=== PATIENT | female | born 1995 | race American Indian/Alaskan Native ===

== ENCOUNTER 2021-04-13 17:02 | Outpatient (CLI) | payer OTHER, MEDICAID ==
[2021-04-13] MEDS ORDERED: LACTATED RINGERS 1,000 ML IV ONE (17:40)
[2021-04-13 17:56] LABS: Bacteria,Urine 1+ /HPF (Negative); Bilirubin,Urine NEG (Negative); Blood,Urine NEG (Negative); Color,Urine Yellow (Yellow); Mucus,Urine 3+ /HPF; Urobilinogen,Urine < 2.0 mg/dL (<2.0)
[2021-04-13] MEDS ORDERED: ACETAMINOPHEN 500 MG TAB PO ONE (18:31)
[2021-04-13] MEDS: TERBUTALINE 1 MG/1 ML INJ SUB-Q PRN ×2 (19:21→19:52)
[2021-04-13 20:26] VITALS: BP 120/59
== END 2021-04-13 20:45 | disposition home or self-care (01) ==
LOC: TRG 17:02 → APU 17:09 → TRG 20:45
PROVIDERS: ATTEND Obstetrics & Gynecology
DX: O47.03 False labor before 37 completed weeks of gestation, third trimester (principal); R52 Pain, unspecified; Z3A.33 33 weeks gestation of pregnancy
CPT/HCPCS: 59025; 81001; 96360; 96372; J3105; J7120

== ENCOUNTER 2021-05-29 08:53 | Inpatient (IN) | payer OTHER, MEDICAID ==
[2021-05-29] MEDS: LACTATED RINGERS 1,000 ML IV SCH ×2 (11:00→15:22)
[2021-05-29] MEDS ORDERED: LACTATED RINGERS 1,000 ML IV ONE (11:12)
[2021-05-29] MEDS ORDERED: CARBOPROST TROMETHAMINE 250 MCG/1 ML INJ IM PRN (13:29)
[2021-05-29] MEDS ORDERED: ONDANSETRON 4 MG/2 ML INJ IV PRN ×2 (13:29→20:02)
[2021-05-29] MEDS ORDERED: LOPERAMIDE 2 MG CAP PO PRN (13:29)
[2021-05-29] MEDS ORDERED: METHYLERGONOVINE MALEATE 0.2 MG/ML VIAL IM PRN (13:29)
[2021-05-29] MEDS ORDERED: TERBUTALINE 1 MG/1 ML INJ SUB-Q PRN (13:29)
[2021-05-29] MEDS ORDERED: NALOXONE 0.4 MG/1 ML INJ IV PRN (13:29)
[2021-05-29] MEDS ORDERED: fentaNYL 100 MCG/2 ML INJ IV PRN (13:29)
[2021-05-29] MEDS ORDERED: ePHEDrine SULFATE 50 MG/1 ML INJ IV PRN ×2 (13:29→15:30)
[2021-05-29] MEDS ORDERED: ACETAMINOPHEN 325 MG TAB PO PRN ×2 (13:29→20:02)
[2021-05-29] MEDS ORDERED: OXYTOCIN 10 UNIT/1 ML INJ IM PRN (13:29)
[2021-05-29] MEDS ORDERED: BUTORPHANOL 2 MG/1 ML INJ IV PRN ×2 (13:29)
[2021-05-29] MEDS ORDERED: MINERAL OIL 30 ML ORAL LIQD PO PRN (13:29)
[2021-05-29] MEDS ORDERED: OXYTOCIN DRIP 30 UNITS/500 ML BAG IV SCH ×2 (14:00)
[2021-05-29] MEDS ORDERED: miSOPROStol 200 MCG TAB PR PRN (14:00)
[2021-05-29] MEDS ORDERED: LIDOCAINE (2%) 20 MG/1 ML VIAL 20 ML MDV INFILTRATI ONE (14:00)
[2021-05-29 15:16] LABS: Hematocrit 33.4 % (30.3-42.9); Hemoglobin 10.8 gm/dl (10.1-14.3); Mean Corpuscular HGB Conc 32 % (30-34); Mean Corpuscular Volume 80 fl (79-97); Platelet Count 190 K/mm3 (140-440); Red Blood Count 4.19 M/mm3 (3.65-5.03); Red Cell Distribution Width 16.9 % (13.2-15.2)
[2021-05-29] MEDS ORDERED: NALOXONE 2 MG/2 ML INJ IV PRN (15:30)
--- NOTE | 2021-05-29 15:52 | Anesthesia Consultation ---
Anesthesia Consult and Med Hx Date of service: 05/29/21 - Airway Anesthetic Teeth Evaluation: Good, Poor ROM Head & Neck: Adequate Mental/Hyoid Distance: Adequate Mallampati Class: Class II Intubation Access Assessment: Probably Good - Pulmonary Exam CTA: Yes - Cardiac Exam Cardiac Exam: RRR - Pre-Operative Health Status ASA Pre-Surgery Classification: ASA2 Proposed Anesthetic Plan: Epidural - Pulmonary Hx Smoking: No Hx Asthma: No Hx Respiratory Symptoms: No SOB: No COPD: No Home Oxygen Therapy: No Hx Pneumonia: No Hx Sleep Apnea: No - Cardiovascular System Hx Hypertension: No Hx Coronary Artery Disease: No Hx Heart Attack/AMI: No Hx Angina: No Hx Percutaneous Transluminal Coronary Angioplasty (PTCA): No Hx Cardia Arrhythmia: No Hx Pacemaker: No Hx Internal Defibrillator: No Hx Valvular Heart Disease: No Hx Heart Murmur: No Hx Peripheral Vascular Disease: No - Central Nervous System Hx Neuromuscular Disorder: No Hx Seizures: No CVA: No Hx Back Pain: Yes Hx Psychiatric Problems: No - Gastrointestinal Hx Ulcer: No Hx Gastroesophageal Reflux Disease: No - Endocrine Hx Renal Disease: No Hx End Stage Renal Disease: No Hx Cirrhosis: No Hx Liver Disease: No Hx Insulin Dependent Diabetes: No Hx Non-Insulin Dependent Diabetes: No Hx Thyroid Disease: No Hx Hypothyroidism: No Hx Hyperthyroidism: No - Hematic Hx Anemia: No Hx Sickle Cell Disease: No - Other Systems Hx Alcohol Use: Yes (SOCIALLY) Hx Substance Use: No Hx Cancer: No Hx Obesity: No
[2021-05-29] MEDS ORDERED: fentaNYL-BUPIV 2 MCG/ML-0.125% 200 MCG/100 ML BAG EPIDURAL SCH (16:00)
--- NOTE | 2021-05-29 16:30 | Progress Note ---
Labor Epidural - Labor Epidural Start Time: 16:00 Stop Time: 16:14 Performed by:: CAN RIDLEY Procedure: Patient is requesting a laboring epidural for laboring pain. Patient IDed, H&P reviewed, all questions and concerns were answered, and consent was signed. Timeout was performed at bedside. Patient in sitting position. Sterile prep and drape was performed. [3] ml of 1% lidocaine skin wheal at L[3]- L [4]. 18- gauge [employer] epidural needle was advanced to loss of resistance with saline technique 4cm. Negative CSF negative blood. Epidural catheter advanced to [10] centimeters. [NEGATIVE] Aspiration [NEGATIVE] test dose. Sterile dressing applied. Patient tolerated procedure.
--- NOTE | 2021-05-29 16:50 | History and Physical Report ---
History of Present Illness Date of examination: 05/29/21 Date of admission: 05/29/21 14:35 Chief complaint: Uterine contractions History of present illness: 25-year-old G1, P0 at 39 and 5 weeks who presents to labor and delivery with a chief complaint of regular uterine contractions. The patient had evidence of cervical dilatation during observation from 3 to 5 cm. Her course was initiated in the first trimester at [facility]. Her course has been complicated by episodes of vertigo, vasovagal symptoms, and STD exposure for which the patient tested negative at her test of cure. She is GBS negative. She is a silent carrier for alpha thalassemia. Past History Past Medical History: other (Alpha thalassemia carrier) Past Surgical History: no surgical history [employer] LO[employer]ER History: chlamydia Social history: single - Obstetrical History Expected Date of Delivery: 05/31/21 Actual Gestation: 39 Week(s) 5 Day(s) : 1 Para: 0 Hx # Term Pregnancies: 0 Number of Pregnancies: 0 Spontaneous Abortions: 0 Induced : 0 Number of Living Children: 0 Medications and Allergies Allergies Allergy/AdvReac Type Severity Reaction Status Date / Time No Known Allergies Allergy Verified 04/13/21 17:40 Home Medications Medication Instructions Recorded Confirmed Last Taken Type No Known Home Medications [No 05/29/21 05/29/21 Unknown History Reported Home Medications] Active Meds: Active Medications Acetaminophen (Acetaminophen 325 Mg Tab) 650 mg PO Q4H PRN PRN Reason: Pain, Mild (1-3) Butorphanol Tartrate (Butorphanol 2 Mg/1 Ml Inj) 1 mg IV Q2H PRN PRN Reason: Pain, Moderate(4-6) LABOR PAIN Butorphanol Tartrate (Butorphanol 2 Mg/1 Ml Inj) 2 mg IV Q2H PRN PRN Reason: Pain , Severe (7-10) Carboprost Tromethamine (Carboprost Tromethamine 250 Mcg/1 Ml Inj) 250 mcg IM ONCE PRN PRN Reason: Uterine Bleeding Ephedrine Sulfate (Ephedrine Sulfate 50 Mg/1 Ml Inj) 10 mg IV Q2M PRN PRN Reason: Hypotension Ephedrine Sulfate (Ephedrine Sulfate 50 Mg/1 Ml Inj) 10 mg IV Q2M PRN PRN Reason: Hypotension Fentanyl (Fentanyl 100 Mcg/2 Ml Inj) 100 mcg IV Q2H PRN PRN Reason: Pain,Severe (7-10) LABOR PAIN Oxytocin/Sodium Chloride (Pitocin/Ns 30 Unit/500ml) 30 units in 500 mls @ 2 mls/hr IV TITR CHRISTEN; Protocol Lactated Ringer's (Lactated Ringers) 1,000 mls @ 125 mls/hr IV DIRECT CHRISTEN Last Admin: 05/29/21 15:22 Dose: 125 mls/hr Documented by: Oxytocin/Sodium Chloride (Pitocin/Ns 30 Unit/500ml) 30 units in 500 mls @ 40 mls/hr IV TITR CHRISTEN; Protocol Fentanyl/Bupivacaine/Sodium Chlor (Fentanyl-Bupiv 2 Mcg/Ml-0.125%) 200 mcg in 100 mls @ 12 mls/hr EPIDURAL TITR CHRISTEN; Protocol Last Admin: 05/29/21 16:37 Dose: 12 mls/hr Documented by: Loperamide HCl (Loperamide 2 Mg Cap) 2 mg PO ONCE PRN PRN Reason: give with Hemabate Methylergonovine Maleate (Methylergonovine Maleate 0.2 Mg/Ml Vial) 0.2 mg IM ONCE PRN PRN Reason: Uterine Bleeding Mineral Oil (Mineral Oil 30 Ml Oral Liqd) 30 ml PO QHS PRN PRN Reason: Constipation Misoprostol (Misoprostol 200 Mcg Tab) 800 mcg CO ONCE PRN PRN Reason: Uterine Bleeding Naloxone HCl (Naloxone 0.4 Mg/1 Ml Inj) 0.1 mg IV Q2MIN PRN PRN Reason: Res Rate </= 8 or 02 SAT < 92% Naloxone HCl (Naloxone 2 Mg/2 Ml Inj) 0.2 mg IV Q5M PRN PRN Reason: Respiratory sedation Ondansetron HCl (Ondansetron 4 Mg/2 Ml Inj) 4 mg IV Q8H PRN PRN Reason: Nausea And Vomiting Last Admin: 05/29/21 15:21 Dose: 4 mg Documented by: Oxytocin (Oxytocin 10 Unit/1 Ml Inj) 10 unit IM ONCE PRN PRN Reason: Uterine Bleeding Terbutaline Sulfate (Terbutaline 1 Mg/1 Ml Inj) 0.25 mg SUB-Q ONCE PRN PRN Reason: Hyperstimulation/Hypertonicity Review of Systems All systems: negative Genitourinary: contractions, no leakage of fluid - Vital Signs Vital signs: Vital Signs Pulse Pulse Ox 54 L 78 L 05/29/21 09:57 05/29/21 09:57 Temp Pulse Resp BP Pulse Ox 98.1 F 65 16 111/62 100 05/29/21 10:05 05/29/21 16:46 05/29/21 10:05 05/29/21 16:45 05/29/21 16:46 - Physical Exam Breasts: Positive: deferred Cardiovascular: Regular rate Lungs: Positive: Clear to auscultation Abdomen: Positive: normal appearance Results Result Diagrams: 05/29/21 14:30 Abnormal lab results 05/29/21 Range/Units 14:30 MCH 26 L (28-32) pg RDW 16.9 H (13.2-15.2) % All other labs normal. Assessment and Plan - Patient Problems (1) Active labor at term Current Visit: Yes Status: Acute Plan to address problem: Admit to labor and delivery
--- NOTE | 2021-05-29 17:20 | Procedure Note ---
OB Delivery Note - Delivery Date of Delivery: 05/29/21 Surgeon: MONTANA ROUSE Estimated blood loss: 100cc - Vaginal Delivery presentation: vertex Delivery position: OA Delivery monitor: external FHT, external uterine Route of delivery: Delivery placenta: spontaneous Delivery cord: 3 umbilical vessels Episiotomy: none Delivery laceration: 1st degree - Infant A at 1 minute: 8 at 5 minutes: 9 Infant Gender: Female (weight 6lbs 11oz)
[2021-05-29] MEDS ORDERED: LANOLIN/ZINC/DIMETHICONE (LANSINOH) 7 GM TP PRN (20:02)
[2021-05-29] MEDS ORDERED: diphenhydrAMINE 25 MG CAP PO PRN (20:02)
[2021-05-29] MEDS ORDERED: PROMETHAZINE 25 MG RECT SUPP PR PRN (20:02)
[2021-05-29] MEDS ORDERED: HYDROcodone/ACETAMINOPHEN 5-325 MG TAB PO PRN (20:02)
[2021-05-29] MEDS ORDERED: WITCH HAZEL/ GLYCERIN PAD TP PRN (20:02)
[2021-05-29] MEDS ORDERED: PROMETHAZINE 25 MG TAB PO PRN (20:02)
[2021-05-29] MEDS ORDERED: MAGNESIUM HYDROXIDE (MOM) ORAL LIQD UDC PO PRN (20:02)
[2021-05-29] MEDS: IBUPROFEN 600 MG TAB PO SCH (22:45)
[2021-05-30 06:35] LABS: Hematocrit 29.5 % (30.3-42.9); Hemoglobin 9.6 gm/dl (10.1-14.3)
[2021-05-30] MEDS: IBUPROFEN 600 MG TAB PO SCH ×3 (08:30→23:47)
--- NOTE | 2021-05-30 11:34 | Progress Note ---
Assessment and Plan - Patient Problems (1) Active labor at term Current Visit: Yes Status: Acute Plan to address problem: Patient doing well Discharge home Subjective - Subjective Date of service: 05/30/21 Interval history: Patient having some minor cramping with breast-feeding. Her pain is otherwise well controlled. She is tolerating regular diet. Patient reports: appetite normal, voiding normally, pain well controlled : doing well Objective - Vital Signs Latest vital signs: Vital Signs Temp Pulse Resp BP BP Pulse Ox Pulse Ox 05/30/21 08:11 97.8 F 85 18 109/69 99 05/30/21 08:09 100 05/30/21 04:44 98.4 F 80 20 99/52 97 05/30/21 00:45 98.0 F 78 18 97/59 100 05/29/21 22:45 20 05/29/21 20:00 97.8 F 56 L 20 110/65 97 97 05/29/21 19:41 65 100 05/29/21 19:40 66 88 05/29/21 19:37 64 98/68 05/29/21 19:36 60 100 05/29/21 19:35 56 L 103/55 05/29/21 19:33 56 L 105/59 05/29/21 19:31 58 L 104/59 100 05/29/21 19:29 57 L 103/59 05/29/21 19:27 55 L 101/59 05/29/21 19:26 58 L 100 05/29/21 19:25 55 L 103/59 05/29/21 19:23 54 L 106/56 05/29/21 19:21 54 L 109/58 100 05/29/21 19:19 61 104/55 05/29/21 19:17 54 L 101/59 05/29/21 19:16 57 L 89 05/29/21 19:15 55 L 100/56 66 L 05/29/21 19:13 71 108/58 05/29/21 19:11 65 107/65 100 05/29/21 19:09 52 L 107/68 05/29/21 19:08 61 12 100 05/29/21 19:07 48 L 109/70 05/29/21 19:06 51 L 99 05/29/21 19:05 46 L 110/72 05/29/21 19:03 51 L 105/65 05/29/21 19:01 52 L 105/66 99 05/29/21 18:59 49 L 108/67 05/29/21 18:57 49 L 107/67 05/29/21 18:56 47 L 100 05/29/21 18:55 48 L 107/66 05/29/21 18:53 48 L 105/66 05/29/21 18:52 58 L 92 05/29/21 18:51 52 L 106/59 99 05/29/21 18:50 54 L 113/59 05/29/21 18:47 52 L 102/61 05/29/21 18:46 57 L 105/60 91 05/29/21 18:43 47 L 109/60 05/29/21 18:41 49 L 108/68 100 05/29/21 18:39 49 L 104/67 05/29/21 18:37 60 101/65 05/29/21 18:36 54 L 91 05/29/21 18:35 59 L 106/72 05/29/21 18:33 48 L 103/64 05/29/21 18:32 51 L 102/66 05/29/21 18:31 55 L 99 05/29/21 18:29 51 L 97/56 05/29/21 18:27 48 L 102/60 05/29/21 18:26 55 L 93 05/29/21 18:25 52 L 101/55 05/29/21 18:23 51 L 103/61 05/29/21 18:22 50 L 104/57 05/29/21 18:21 50 L 99 05/29/21 18:19 54 L 105/55 05/29/21 18:17 54 L 102/53 05/29/21 18:16 60 90/42 99 05/29/21 18:13 179 H 118/71 05/29/21 18:11 184 H 132/79 98 05/29/21 18:09 179 H 122/73 05/29/21 18:06 69 99 05/29/21 18:03 53 L 97/55 05/29/21 18:01 66 96/51 98 05/29/21 17:59 68 98/58 05/29/21 17:57 66 104/59 05/29/21 17:56 71 99 05/29/21 17:55 62 109/55 05/29/21 17:53 75 103/58 05/29/21 17:51 74 111/55 100 05/29/21 17:50 77 109/54 05/29/21 17:46 81 99 05/29/21 17:41 74 99 05/29/21 17:36 84 99 05/29/21 17:35 77 117/56 05/29/21 17:33 66 97/64 94 05/29/21 17:31 66 103/59 99 05/29/21 17:29 73 106/55 05/29/21 17:27 76 104/55 05/29/21 17:26 79 99 05/29/21 17:25 75 104/55 05/29/21 17:23 76 98/53 05/29/21 17:21 90 99/54 100 05/29/21 17:19 87 122/58 05/29/21 17:18 84 124/56 05/29/21 17:16 85 100 05/29/21 17:15 74 114/60 05/29/21 17:13 67 114/60 05/29/21 17:11 79 117/57 91 05/29/21 17:09 81 123/59 05/29/21 17:08 82 126/57 05/29/21 17:06 89 100 05/29/21 17:05 79 118/56 05/29/21 17:03 69 114/57 05/29/21 17:01 61 116/58 100 05/29/21 16:59 74 110/59 05/29/21 16:57 60 114/61 05/29/21 16:56 65 100 05/29/21 16:55 71 114/59 05/29/21 16:53 69 108/58 05/29/21 16:51 64 111/62 100 05/29/21 16:49 77 103/59 05/29/21 16:47 61 108/59 05/29/21 16:46 65 100 05/29/21 16:45 62 111/62 05/29/21 16:43 60 114/66 05/29/21 16:41 73 114/70 100 05/29/21 16:39 66 113/63 05/29/21 16:37 73 106/58 05/29/21 16:36 77 100 05/29/21 16:35 68 115/65 05/29/21 16:33 71 109/63 05/29/21 16:31 80 111/65 100 05/29/21 16:29 75 112/66 05/29/21 16:27 76 115/69 05/29/21 16:26 67 100 05/29/21 16:25 77 118/65 05/29/21 16:23 62 113/64 05/29/21 16:21 66 116/66 100 05/29/21 16:18 86 112/66 05/29/21 16:17 60 106/61 90 05/29/21 16:16 72 99 05/29/21 16:15 78 104/59 05/29/21 16:13 80 105/58 05/29/21 16:11 68 107/61 100 05/29/21 16:09 72 103/59 05/29/21 16:07 76 100/55 05/29/21 16:06 77 98 05/29/21 16:05 85 105/52 05/29/21 16:02 80 86 05/29/21 16:01 85 100 05/29/21 15:56 78 99 05/29/21 15:51 81 100 05/29/21 15:46 82 100 05/29/21 15:43 97 H 62 L 05/29/21 15:41 82 100 05/29/21 15:40 83 107/55 05/29/21 15:37 81 94 05/29/21 15:36 78 100 05/29/21 15:31 82 86 05/29/21 15:26 86 100 05/29/21 15:21 81 100 05/29/21 15:16 88 100 05/29/21 15:11 78 100 05/29/21 15:06 86 100 05/29/21 15:01 86 71 L 05/29/21 14:59 91 H 81 L 05/29/21 14:55 115 H 100 05/29/21 14:50 83 100 05/29/21 14:45 77 100 05/29/21 14:41 68 119/64 05/29/21 14:40 68 100 05/29/21 14:35 85 100 05/29/21 14:30 82 100 05/29/21 14:25 28 L 82 L 05/29/21 14:16 65 100 05/29/21 14:11 74 100 05/29/21 14:06 79 100 05/29/21 14:04 68 125/58 05/29/21 14:01 72 100 05/29/21 13:56 71 96 05/29/21 13:51 77 100 05/29/21 13:46 72 100 05/29/21 13:41 85 100 05/29/21 13:36 79 100 05/29/21 13:34 81 93/55 05/29/21 13:31 72 100 05/29/21 13:26 72 100 05/29/21 13:23 70 109/60 05/29/21 13:21 74 100 05/29/21 13:19 72 94 05/29/21 13:16 67 100 05/29/21 13:11 79 100 05/29/21 12:59 72 100 05/29/21 12:53 72 100 05/29/21 12:48 74 100 05/29/21 12:43 65 100 05/29/21 12:38 66 100 05/29/21 12:33 67 100 05/29/21 12:28 69 100 05/29/21 12:23 68 100 05/29/21 12:18 70 100 05/29/21 12:13 77 100 05/29/21 12:08 82 100 05/29/21 12:04 71 102/71 05/29/21 12:03 70 100 05/29/21 11:58 71 100 05/29/21 11:53 63 100 05/29/21 11:48 64 100 05/29/21 11:43 67 100 05/29/21 11:38 64 100 05/29/21 11:34 72 99/62 Intake and Output 05/29/21 05/30/21 05/30/21 22:59 06:59 14:59 Intake Total 545.833 Output Total 600 Balance -54.167 Intake: IV 545.833 Lactated Ringers 1,000 ml 545.833 @ 125 mls/hr IV DIRECT CHRISTEN Rx#:[id number] Output: Urine 600 Void 600 Other: Total, Output Amount 600 # Voids Void 1 Estimated Blood Loss 50 - Labs Labs: Abnormal lab results 07/31/21 08/01/21 Range/Units 14:30 06:15 Hgb 9.6 L (10.1-14.3) gm/dl Hct 29.5 L (30.3-42.9) % MCH 26 L (28-32) pg RDW 16.9 H (13.2-15.2) %
--- NOTE | 2021-05-30 11:34 | Discharge Summary ---
Providers - Providers Date of Admission: 05/29/21 14:35 Date of discharge: 05/30/21 Attending physician: MONTANA ROUSE Primary care physician: MONTANA ROUSE Hospitalization Reason for admission: active labor Delivery: Discharge diagnosis: IUP at term delivered [place] baby: female Hospital course: Patient admitted in active labor and had a successful vaginal delivery. Her course was uneventful. Condition at discharge: Good Disposition: DC-01 TO HOME OR SELFCARE - Discharge Diagnoses (1) Active labor at term Status: Acute Plan - Discharge Medications Prescriptions: Ibuprofen [Motrin] 800 mg PO Q8HR PRN #30 tablet PRN Reason: Pain , Severe (7-10) HYDROcodone/APAP 5-325 [[place] 5/325] 1 each PO Q6HR PRN #15 tablet PRN Reason: Pain - Provider Discharge Summary Activity: no sex for 6 weeks, no heavy lifting 4 weeks, no strenuous exercise Diet: routine Instructions: routine Additional instructions: [] Smoking cessation referral if applicable(refer to patient education folder for contact #) [] Refer to [facility] Booklet Call your doctor immediately for: * Fever > 100.5 * Heavy vaginal bleeding ( >1 pad per hour) * Severe persistent headache * Shortness of breath * Reddened, hot, painful area to leg or breast * Schedule visit in 4 weeks - Follow up plan
--- NOTE | 2021-05-30 18:54 | Post Anesthesia Evaluation ---
- Post Anesthesia Evaluation Patient Participated: Yes Airway Patent: Yes Stable Respiratory Function: Yes Nausea/Vomiting: No Temp > 96.8F: Yes Pain Manageable: Yes Adequeate Hydration: Yes Anesthesia Complications: No Block Receding Appropriately: Yes Patient on Ventilator: No
[2021-05-31] MEDS: IBUPROFEN 600 MG TAB PO SCH (05:56)
[2021-05-31 14:45] VITALS: BP 117/73
== END 2021-05-31 14:30 | disposition home or self-care (01) | DRG 807 ==
LOC: TRG 08:53 → APU 08:56 → TRG 13:29 → OBSVTOIN 14:35 → LD 14:35 → OB 19:48
PROVIDERS: ADMIT Obstetrics & Gynecology; ATTEND Obstetrics & Gynecology
PROC: 10E0XZZ Delivery of Products of Conception, External Approach (ICD-10-PCS; principal; 2021-05-29)
PROC: 3E0R3BZ Introduction of Anesthetic Agent into Spinal Canal, Percutaneous Approach (ICD-10-PCS; 2021-05-29)
PROC: 00HU33Z Insertion of Infusion Device into Spinal Canal, Percutaneous Approach (ICD-10-PCS; 2021-05-29)
PROC: 0HQ9XZZ Repair Perineum Skin, External Approach (ICD-10-PCS; 2021-05-29)
DX: O70.0 First degree perineal laceration during delivery (principal); Z37.0 Single live birth; Z3A.39 39 weeks gestation of pregnancy; Z20.822 Contact with and (suspected) exposure to COVID-19
CPT/HCPCS: 36415; 59025; 85014; 85018; 85027; 86592; 86850; 86900; 86901; 96360; G0378; J2405; J7120; U0003